=== PATIENT | male | born 1970 | race Caucasian/White ===

== ENCOUNTER → 2021-01-17 | Outpatient (CLI) | payer OTHER ==
[2021-01-17 19:19] LABS: HEMOGLOBIN 16.4 gm/dl (14.0-17.5); RED BLOOD COUNT 5.1 M/UL (4.20-5.50)
[2021-01-17 19:55] LABS: BUN/CREATININE RATIO 16 (0-10)
[2021-01-19 08:13] LABS: VITAMIN D, 25-HYDROXY 30.3 ng/mL (30.0-100.0)
[2021-01-25 12:15] LABS: TESTOSTERONE, SERUM 369 ng/dL (264-916)
== END ==
LOC: LAB 17:47
PROVIDERS: Nurse Practitioner Family
DX: Z13.220 Encounter for screening for lipoid disorders (principal); R07.9 Chest pain, unspecified; R53.83 Other fatigue; G47.00 Insomnia, unspecified; N52.9 Male erectile dysfunction, unspecified; J84.9 Interstitial pulmonary disease, unspecified
CPT/HCPCS: 71046; 80053; 80061; 81001; 84153; 84402; 84403; 84439; 84443; 85025

== ENCOUNTER → 2022-01-08 | Outpatient (CLI) | payer OTHER | LOC: RAD 12:25 | DX: M25.511 Pain in right shoulder (principal) | CPT/HCPCS: 73030 ==